=== PATIENT | male | born 1990 | race Hispanic/Latino ===

== ENCOUNTER 2019-03-08 21:33 | Emergency (ER) | payer SELFPAY ==
[~2019-03-08] VITALS: Ht 162.6 cm; Wt 77.1 kg
--- OUTSIDE RECORDS SUMMARY | 2019-03-08 21:38 | XMS REPORT | Clinical Summary ---
Author Author [facility] Address Unknown Phone Unavailable Care Team Providers Care Building Carpenter Name Role Phone Asked, No Pcp PCP Unavailable Allergies No Known Allergies Medications No known medications Active Problems Not on file Encounters Care Team Description Date Type Specialty Theresa Cortes DO Visit for suture removal (Primary Dx) 04/03/2018 Emergency Emergency Medicine after 03/07/2018 Social History Date Tobacco Use Types Packs/Day Years Used Never Smoker Smokeless Tobacco: Never Used Drinks/Week oz/Week Comments Alcohol Use No Sex Assigned at Date Recorded Not on file Industry Job Start Date Occupation Not on file Not on file Not on file Travel End Travel History Travel Start No recent travel history available. Last Filed Vital Signs Reading Time Taken Comments Vital Sign 116/72 04/03/2018 3:33 PM CDT Blood Pressure 73 04/03/2018 3:33 PM CDT Pulse 35.9 C (96.6 F) 04/03/2018 3:33 PM CDT Temperature 16 04/03/2018 3:33 PM CDT Respiratory Rate 97% 04/03/2018 3:33 PM CDT Oxygen Saturation - - Inhaled Oxygen Concentration 81.6 kg (180 lb) 04/03/2018 3:31 PM CDT Weight 162.6 cm (5' 4") 04/03/2018 3:31 PM CDT Height 30.9 04/03/2018 3:31 PM CDT Body Mass Index Plan of Treatment Not on file Procedures Comments Procedure Name Priority Date/Time Associated Diagnosis SUTURE REMOVAL Routine 04/03/2018 4:21 PM CDT after 03/07/2018 Results * SUTURE REMOVAL (04/03/2018 4:21 PM CDT) Narrative Performed At [facility] 04/03/20184:53 PM Suture Removal Performed by: INGRID LOPEZ Authorized by: THERESA CORTES Consent: Consent obtained:Verbal Consent given by:Patient Risks discussed:Bleeding, pain and wound separation Location: Location:Upper extremity Upper extremity location:Arm Arm location:L upper arm Procedure details: Wound appearance:No signs of infection Number of sutures removed:12 Post-procedure details: Post-removal:No dressing applied Patient tolerance of procedure:Tolerated well, no immediate complications after 03/07/2018 Advance Directives For more information, please contact: [phone] Patient Electrical Assembly Technician Explanation Type Date Recorded Advance Directives, 04/03/2018 4:30 PM Living Will and Medical Power of Instructor Technical Training
[2019-03-08 23:06] LABS: BILIRUBIN,URINE NEGATIVE (NEGATIVE); CLARITY,URINE CLEAR (CLEAR); COLOR,URINE YELLOW (YELLOW); KETONES,URINE NEGATIVE (NEGATIVE); LEUKOCYTE ESTERASE ,URINE NEGATIVE (NEGATIVE); NITRITE,URINE NEGATIVE (NEGATIVE); PROTEIN,URINE DIPSTICK NEGATIVE (NEGATIVE); URINE UROBILINOGEN 0.2 mg/dL (0.2 - 1)
--- NOTE | 2019-03-08 23:36 | Diagnostic Imaging Report ---
EXAMINATION: Scrotal ultrasound CLINICAL INDICATION: Testicular pain. COMPARISON: None. TECHNIQUE: Grayscale and color Doppler evaluation of the scrotum was performed in transverse and longitudinal planes. FINDINGS: The right testicle measures 4.1 x 2.9 x 2.7 cm. There are no masses or calcifications.. The right epididymis measures 1 x 1.5 x 1 cm. Small anechoic cyst or spermatocele measuring 0.4 x 0.3 x 0.4 cm. There is no evidence of right hydrocele or varicocele. There is normal flow to the right testicle, without evidence of torsion. The left testicle measures 3.8 x 2.3 x 3.3 cm. There are no masses or calcifications.. The left epididymis measures 0.7 x 1.2 x 1.8 cm. Small anechoic cyst or spermatocele measuring 0.4 x 0.5 x 0.6 cm.. There is no evidence of left hydrocele or varicocele. There is normal flow to the left testicle without evidence of torsion. The scrotum has a normal appearance, without focal lesions. Impression: Unremarkable sonographic appearance of the testes. Symmetric perfusion without evidence of torsion. Small bilateral epididymal head cysts or spermatoceles. Signed by: Dr. Sadiq Sunshine M.D. on 03/08/2019 11:32 PM
[2019-03-09 00:51] VITALS: BP 116/63
== END 2019-03-09 00:52 | disposition home or self-care (01) ==
LOC: ER 21:33
DX: N50.811 Right testicular pain (principal); N45.1 Epididymitis
CPT/HCPCS: 76870; 81001; 93976; 99283